=== PATIENT | male | born 1980 | race Caucasian/White ===

== ENCOUNTER 2017-05-18 10:21 | Emergency (ER) | payer OTHER ==
[~2017-05-18] VITALS: Ht 157.5 cm; Wt 79.9 kg
[~2017-05-18 10:21] MED LIST: HYDR-3240
[2017-05-18] MEDS ORDERED: KETOROLAC 30 MG/1 ML ONE (11:23)
[2017-05-18] MEDS ORDERED: METOCLOPRAMIDE 5 MG/ML, 2ML ONE (11:23)
[2017-05-18] MEDS ORDERED: METOCLOPRAMIDE 5 MG/ML, 2ML IVPush ONE (11:30)
[2017-05-18] MEDS ORDERED: SODIUM CHLORIDE 0.9% 1,000ML IVBOLUS ONE (11:30)
[2017-05-18] MEDS ORDERED: KETOROLAC 30 MG/1 ML IVPush ONE (11:30)
[2017-05-18 12:13] VITALS: BP 105/57
[2017-05-18] MEDS ORDERED: ACETAMINOPHEN 500 MG TABLET ONE (12:19)
[2017-05-18] MEDS ORDERED: ACETAMINOPHEN 500 MG TABLET PO ONE (12:30)
== END 2017-05-18 12:48 | disposition home or self-care (01) ==
LOC: ED 12:35
DX: G43.909 Migraine, unspecified, not intractable, without status migrainosus (principal)
CPT/HCPCS: 96361; 96374; 96375; 99284; J1885; J2765; J7030